=== PATIENT | female | born 1995 | race Caucasian/White ===

== ENCOUNTER 2017-06-22 18:26 | Emergency (ER) | payer SELFPAY ==
[~2017-06-22] VITALS: Ht 167.6 cm; Wt 67.6 kg
[2017-06-22 18:30] VITALS: BP 135/95; Ht 167.6 cm; Wt 67.6 kg
== END 2017-06-22 20:21 | disposition home or self-care (01) ==
LOC: ED 18:26
DX: L98.9 Disorder of the skin and subcutaneous tissue, unspecified (principal); R21 Rash and other nonspecific skin eruption; Z88.0 Allergy status to penicillin